=== PATIENT | female | born 1935 | race Caucasian/White ===

== ENCOUNTER 2016-08-18 06:12 | Inpatient (IN) | payer MEDICARE ==
[2016-08-07 12:59] LABS: BASOPHILS 0.4 %; BASOPHILS ABSOLUTE 0.03 10/3/uL (0.0-0.16); EOSINOPHILS 3.3 %; EOSINOPHILS ABSOLUTE 0.23 10/3/uL (0.0-0.53); HEMATOCRIT 42.9 % (36.0-48.0); HEMOGLOBIN 14.6 g/dL (12.0-16.0); IMMATURE GRANULOCYTES 0.7 %; IMMATURE GRANULOCYTES ABSOLUTE 0.05 10/3/uL (0.0-0.11); LYMPHOCYTES 27.5 %; LYMPHOCYTES ABSOLUTE 1.92 10/3/uL (0.67-4.30); MEAN CORPUSCULAR HEMOGLOB 31.3 pg (26.0-34.0); MEAN CORPUSCULAR VOLUME 91.9 fL (80-100); MEAN PLATELET VOLUME 10.8 fL (9.2-13.0); MONOCYTES 8.3 %; MONOCYTES ABSOLUTE 0.58 10/3/uL (0.21-1.20); NEUTROPHILS 59.8 %; NEUTROPHILS ABSOLUTE 4.17 10/3/uL (2.02-8.40); PLATELET COUNT 220 10/3/uL (150-400); RBC DISTRIBUTION WIDTH 13.6 % (12.0-16.0); RED CELL COUNT 4.67 10/6/uL (4.0-5.6)
[2016-08-07 13:00] LABS: MANUAL DIFF NO %
[2016-08-07 13:04] LABS: INTERNATIONAL NORMAL RATI 1.2 UNITS (-); PROTIME (NOT ORD) 15.3 SEC (12.0-14.5)
[2016-08-07 13:16] LABS: A/G RATIO 0.9 (0.7-1.9); ALBUMIN 3.7 G/DL (3.5-5.0); ALKALINE PHOSPHATASE 96 U/L (45-117); BUN (BLOOD UREA NITROGEN) 17 MG/DL (6-23); CHLORIDE, SERUM 102 MMOL/L (96-112); CO2 (CARBON DIOXIDE) 29 MMOL/L (24-34); CREATININE 0.83 MG/DL (0.55-1.02); GFR AFRICAN AMERICAN 76 ML/MIN (>=60); GFR NON AFRICAN AMERICAN 66 ML/MIN (>=60); GLOBULIN 3.9 G/DL (2.5-4.1); POTASSIUM, SERUM 3.9 MMOL/L (3.5-5.3); SGOT(AST) 19 U/L (5-40); SGPT(ALT) 18 U/L (5-65); SODIUM, SERUM 139 MMOL/L (135-148); TOTAL BILIRUBIN 0.6 MG/DL (0-1.2); TOTAL PROTEIN 7.6 G/DL (6.0-8.5)
[2016-08-07 13:17] LABS: GLUCOSE, SERUM 120 MG/DL (60-99)
[2016-08-07 13:17] LABS: B NATRIURETIC PEPTIDE (BNP) 273.6 PG/ML (< 100.0)
[2016-08-07 13:19] LABS: ASCORBIC ACID (UR NOT ORDER) NEG (NEG); BILIRUBIN, URINE NEGATIVE (NEG); KETONE, URINE NEGATIVE (NEG); LEUKOCYTE ESTERASE(NOT OR NEG (NEG); WBC (NOT ORDERED) (RFLEX) < 1 (0-5)
[2016-08-07 21:35] LABS: GLYCOHEMOGLOBIN (HbA1c) 5.9 % (4.7-6.1)
--- NOTE | ~2016-08-18 | OP ---
Record Of Operation [facility] [address] [facility] [place]. [address] NAME: ORLANDO JAY : 33 STATUS : ADM IN PAT#: [id number] AGE: 80 ADM/REG DATE : 08/18/16 MR#: [id number] REPORT SERV DATE: 08/19/16 DICTATED BY: GALA SHAH DATE: 08/18/16 REPORT STATUS : Draft TRANSCRIBED BY: MODSienna DATE: 08/18/16 DATE OF PROCEDURE: 08/18/2016 PREOPERATIVE DIAGNOSES: 1. Aortic valve stenosis with insufficiency. 2. Coronary artery disease. 3. Angina. 4. Chronic atrial fibrillation. 5. Chronic anticoagulant induced coagulopathy. 6. Hypertension. 7. Hypercholesterolemia. POSTOPERATIVE DIAGNOSES: 1. Aortic valve stenosis with insufficiency. 2. Coronary artery disease. 3. Angina. 4. Chronic atrial fibrillation. 5. Chronic anticoagulant induced coagulopathy. 6. Hypertension. 7. Hypercholesterolemia. PROCEDURES PERFORMED: 1. TAVR, right transfemoral, a 23 mm S3 Ivan pericardial valve. 2. Left transfemoral venous temporary pacemaker placement. 3. Perclose closure of the right femoral artery x2, left femoral artery x1. 4. Contrast aortography. 5. Right iliofemoral runoff aortography. 6. Transthoracic echocardiogram. SURGEONS: Include Dr. Shah, Dr. Gonzalez, Dr. Jensen, and Dr. Paz. MICROBIOLOGY LAB ASSISTANT: Dr. Noble Pena. PRIMARY SHRIMP PACKER: Dr. Francisco Jensen. INDICATIONS: This is an 80-year-old female, who has known aortic valve stenosis, who is experiencing increasing shortness of breath and dyspnea with minimal exertion, and angina type symptoms. She was seen by Dr. Gonzalez and referred for possible TAVR procedure. It was felt that the patient was in least intermediate risk after calculation of the STS database score, and given her age and weakness, it was felt that the TAVR procedure should be performed, and not surgical aortic valve replacement. She underwent a cardiac catheterization, which demonstrated lesion in the circumflex vessel which has not been addressed. We presented the patient at TAVR conference and discussed possible TAVR procedure with the patient and her family, and after lengthy discussion of operation, indications, and risks, they wished to proceed. STS predicted mortality was 6.3% for surgical aortic valve replacement with 28% morbidity mortality for said procedure. Record Of Operation [facility] [address] [place]. [address] NAME: ORLANDO JAY : 33 STATUS : ADM IN PAT#: [id number] AGE: 80 ADM/REG DATE : 08/18/16 MR#: [id number] REPORT SERV DATE: 08/19/16 DICTATED BY: GALA SHAH DATE: 08/18/16 REPORT STATUS : Draft TRANSCRIBED BY: MODSienna DATE: 08/18/16 Echocardiographically, her aortic valve area was 0.64 cm2 with a peak gradient of 33 mmHg. On catheterization, her aortic valve area was calculated 0.4 cm2 with a peak gradient of 40 mmHg, and mean gradient of 35 mmHg. There was moderate aortic insufficiency, and moderate mitral and tricuspid valve insufficiency. Carotid studies demonstrated right grade 1 disease on the right and minimal disease on the left. FINDINGS AT OPERATION: 1. Total time of rapid pacing was 21 seconds. 2. Time of deployment is 0925 hours. 3. Pre-deployment cardiac output of 3.2. Post deployment cardiac output of 3.5 L/minute. 4. Pre-deployment aortic valve area of 0.55. cm2. Post-deployment aortic valve area of 2.54 cm2. 5. Pre-implant aortic pressures: Systolic 122, diastolic 58, mean 82 mmHg. Post- deployment aortic pressures: Systolic 121, diastolic 62, and mean 80 mmHg. 6. Pre-implant AV gradient of 24 mean, peak of 20 mmHg. Post-implant aortic gradient mean of 4, peak of 4 mmHg. 7. Total contrast volume used was 70 mL. 8. Fluoro time was 16.4 minutes. 9. Estimated blood loss was less than 50 mL. 10.Total mGy used was 1086 mGy. 11.Aortic index was 41. 12.There was a small defect in the right femoral artery seen on iliofemoral runoff after Perclose closure of the right femoral arteriotomy site. This was less than 50% stenosis and was left in place. 13.There was no aortic insufficiency on transthoracic echocardiography. 14.Pedal pulses were present in bilateral lower extremities as were femoral artery at the end of the operation. PATHOLOGIC SPECIMENS: None. DESCRIPTION OF PROCEDURE: The patient was brought to the operating suite, where she was laid in the supine position in the hybrid operating table. Sedation with Diprivan and monitored anesthesia care was given. The patient's abdomen, groin, and legs were prepped with Hibiclens and ChloraPrep, and draped with Ioban sterile sheets. The groins were anesthetized with 1% lidocaine, and then microneedle access to the femoral arteries bilaterally and the femoral vein on the left side were obtained. Contrast angiography of the femoral artery access sites were obtained through microcatheter placed over the guidewire. Once these vessels were isolated, 6-[place] Citizen introducers were placed into each of the vessels. Then, a temporary transvenous pacemaker was advanced up the left femoral venous sheath under fluoroscopic guidance to come to rest in the right ventricle and pacing thresholds were confirmed. Next, a guidewire was advanced up the ascending aorta through the left femoral arterial sheath, and a pigtail catheter was placed in the noncoronary sinus, and right coronary sinus. Contrast aortography was used to confirm the angles for deployment of the valve. Record Of [facility] [address] [facility] [place]. [address] NAME: ORLANDO JAY : 31 STATUS : ADM IN [facility]#: [id number] AGE: 80 ADM/REG DATE : 08/18/16 MR#: [id number] REPORT SERV DATE: 08/19/16 DICTATED BY: GALA SHAH DATE: 08/18/16 REPORT STATUS : Draft TRANSCRIBED BY: ABIEL DATE: 08/18/16 Good visualization of the avani of the sinuses was seen at the valve deployment angle. Then, the guidewire was placed in the right femoral artery, and the introducer was removed. Then, two Perclose closure devices were placed and secured. Next, exchange catheter was advanced up into the ascending aorta, and Lunderquist wire was brought into the ascending aorta The valve introducer and sheath were brought up to the field, and these were placed into the descending thoracic aorta. Next, an AL1 catheter was placed in the ascending aorta, and the Lunderquist wire was removed. The valve was crossed with a soft wire using the AL1 catheter. This was exchanged for a Clarence catheter and simultaneous ventricular and aortic pressures were measured and recorded. Then, the extra-stiff wire was advanced into the [place] catheter, and the [place] catheter was removed. The valve delivery system was brought up to the field, and confirmation of the orientation of the valve was performed. The delivery system was then advanced up the right femoral sheath into the descending thoracic aorta. The dilation balloon was then backed onto the valve delivery system. This was then advanced around the arch of the aorta to lay across the aortic valve. We then moved to deployment angles and confirmation of the positioning of the valve was performed. Temporary rapid ventricular pacing ensued, and with pressures reduced, contrast aortography was performed to confirm suitable positioning of the valve. The delivery system had been backed out into the ascending aorta. The valve was then deployed using the balloon. Temporary pacing was suspended. Backup pacing was performed for several seconds. The delivery system was then backed up into the ascending aorta, and contrast aortography demonstrated no evidence of insufficiency. Transthoracic echocardiography was then performed by Dr. Pena demonstrating good ventricular function and no aortic insufficiency. The valve delivery system was then backed out of the sheath. The sheath was removed from the right femoral artery and the Perclose device was deployed. Then, the pigtail catheter in the ascending aorta was back down to the aortic bifurcation. Contrast angiography of the right iliofemoral system was performed demonstrating small defect in the right femoral artery with the Perclose devices were deployed. This was estimated to be less than 50%, and palpable pulses were present in the feet. At this point, we were satisfied we still had adequate flow in the right leg. There was good hemostasis of the right femoral arteriotomy site. Next, an exchange wire was advanced up the pigtail catheter which was then withdrawn from the left femoral artery along with a 6-[place] Citizen introducer. A single Perclose device was then placed in the left femoral arteriotomy site. Good hemostasis was noted on the left leg. Record Of Operation [facility] [id number] [place]. [address] NAME: ORLANDO JAY : 33 STATUS : ADM IN PAT#: [id number] AGE: 80 ADM/REG DATE : 08/18/16 MR#: [id number] REPORT SERV DATE: 08/19/16 DICTATED BY: GALA SHAH DATE: 08/18/16 REPORT STATUS : Draft TRANSCRIBED BY: MODSienna DATE: 08/18/16 The temporary venous pacer was withdrawn as was the [place]-Erin catheter. The femoral sheath in the IJ and the left femoral vein were left in place. The patient tolerated the procedure well. There were no complications. DISPOSITION: The patient was taken to the Intensive Care Unit in stable condition. Pedal pulses were noted bilaterally. ANDREI/ABIEL Gala Shah M.D. / [id number] CC: Dale Bey M.D. William Oellerich, M.D., Ph.D, F.A.C.C.
--- NOTE | ~2016-08-18 | OP ---
Record Of Operation [facility] [address] [place]. [address] NAME: ORLANDO JOHNSON : 31 STATUS : ADM IN PAT#: [id number] AGE: 80 ADM/REG DATE : 08/18/16 MR#: [id number] REPORT SERV DATE: 08/18/16 DICTATED BY: JYOTSNA JENSEN DATE: 08/18/16 REPORT STATUS : Draft TRANSCRIBED BY: ABIEL DATE: 08/18/16 DATE OF PROCEDURE: TAVR NOTE PROCEDURE: Right transfemoral transcatheter aortic valve replacement using 23 mm Romero S3 valve. INDICATIONS FOR THE PROCEDURE: Ms Orlando Johnson is an 80-year-old woman with severe aortic stenosis. Her history is remarkable for chronic atrial fibrillation, hypertension, peptic ulcer disease, and hyperlipidemia. Her echocardiogram demonstrated an ejection fraction of 50%, severe low gradient aortic stenosis, peak gradient of 33, aortic valve area of 0.6, mean gradient of 21. Cardiac catheterization demonstrated 75% stenosis after the first marginal circumflex, was 75 in the OM2 as well, no other obstructive disease. The valve area by catheterization was 0.4, the mean gradient was 35, and a peak gradient of 40. Her predicted mortality by the STS score was 6.3%, predicted morbidity mortality is 27.8%, her EuroSCORE predicted mortality of 4.3%. Both Dr. Shah and Dr. Gonzalez, felt she was at high risk for surgical aortic valve replacement. She came to [facility], the entire team felt she was a better candidate for transcatheter aortic valve replacement. POSTOPERATIVE DIAGNOSES: Successful deployment of the Romero S3 valve, transcatheter aortic valve replacement, using the right transfemoral approach. OPERATIVE DOCTORS: 1. Dr. Jensen. 2. Dr. Gonzalez. 3. Dr. Shah. 4. Dr. Paz. OPERATIVE TECHNIQUE: The patient was prepped and draped in the usual sterile fashion. She received propofol anesthesia, she was not intubated. She did not have a Singh catheter. She did have a radial A-line and a right heart catheter. The right left groins were anesthetized with lidocaine 1%, 12 mL. Access of both left and right femoral artery was easily obtained using a micropuncture technique, angiogram confirmed access in the common femoral artery. A 6-[place] sheath was placed in the left femoral artery, the left femoral vein, and the right femoral artery. The pacemaker was positioned in the right ventricular apex. Excellent threshold. A pigtail catheter was positioned in the ascending aorta to a system valve positioning. Two ProGlide sutures were placed in the right femoral artery at the 10 o'clock and 2 o'clock Record Of Operation [facility] [address] [place]. [address] NAME: ORLANDO JOHNSON : 33 STATUS : ADM IN PAT#: [id number] AGE: 80 ADM/REG DATE : 08/18/16 MR#: [id number] REPORT SERV DATE: 08/18/16 DICTATED BY: JYOTSNA JENSEN DATE: 08/18/16 REPORT STATUS : Draft TRANSCRIBED BY: ABIEL DATE: 08/18/16 positions. Heparin was given IV. The activating clotting time was therapeutic. The 6-[place]ib[place] sheath was replaced into the right femoral artery. The J-wire was placed in the ascending aorta, the multipurpose catheter was positioned, the J-wire was exchanged out for a Lunderquist wire. We then placed the Romero sheath without difficulty. We crossed the aortic valve without difficulty using AL1 and a straight wire. We then measured simultaneous pressures in the ascending aorta in the left ventricle using a Clarence double-lumen pigtail catheter. At that time, we positioned the preshaped Amplatz extra-stiff wire in the left ventricular apex. We then delivered the valve. The valve was positioned onto the balloon in the abdominal aorta. We crossed the valve without difficulty. With rapid ventricular pacing, the valve was deployed. After deployment without the wire, the thoracic aortogram demonstrated no aortic insufficiency. The chest wall echo demonstrated no aortic insufficiency. The AI index was 41. We then removed the Romero sheath. The abdominal aortogram demonstrated no extravasation with excellent flow. She had a good dorsalis pedis pulses and good femoral pulse. The left femoral artery sheath was also removed. The site was closed with ProGlide device. The pacemaker was removed. The right heart catheter was removed. The venous sheath in the left femoral vein was left into place. The total rapid pacing time was 21 seconds. The actual time of valve deployment was 0925 hours. The cardiac output pre-deployment was 3.2 L/minute, post-deployment of the cardiac output was 3.5 L/minute. The valve area pre-deployment was 0.5 cm2, post deployment of the valve area was 2.55 cm2. The blood pressure pre-deployment was 122/58, mean of 82, and heart rate of 85. Post-deployment, the blood pressure was 121/62, mean of 80, and heart rate of 86. The gradient pre-deployment was 24 mmHg mean, 20 mmHg peak, post-deployment the both the peak and mean gradient was 4 mmHg. The total contrast volume used was 70 mL. Total fluoro time of 16.4 minute. The blood loss was less than 50 mL. The radiation dose was off 1086 mGy. The AI index was 41. There was no AI by echo or by thoracic aortogram. In short, the patient underwent a successful transcatheter aortic valve deployment via the right femoral artery using an Romero S3 valve, the valve area increased from 0.5 to 2.5. There was no AI by echo or by thoracic aortogram. She received propofol anesthesia. She was not intubated. Both the right heart catheter and the pigtail pacemaker were removed at the completion of the procedure. She will be treated with aspirin, clopidogrel, and her Eliquis will be restarted. Record Of Operation [facility] [id number] [place]. [address] NAME: ORLANDO JOHNSON : 33 STATUS : ADM IN [facility]#: [id number] AGE: 80 ADM/REG DATE : 08/18/16 MR#: [id number] REPORT SERV DATE: 08/18/16 DICTATED BY: JYOTSNA JENSEN DATE: 08/18/16 REPORT STATUS : Draft TRANSCRIBED BY: ABIEL DATE: 08/18/16 JENNIFER/ABIEL Jyotsna Jensen M.D. / [id number] CC: Mickey Shah M.D.
[~2016-08-18 06:12] MED LIST: ALEVE220 MG PO; ALFAFA; BL CHROMIUM200 MCG OR; BL CHROMIUM200 MCG PO; ELIQUIS 5 MG TAB5 MG PO; ENABLEX7.5 PO; HYDROCHLOROT12.5 MG PO; JANTOVEN5 MG PO; LIQUID TEARS OPH; METPAKSF PO; NORV5 PO; OTC ROLAIDS PO; PROTONIX PO; SURBEX-T1 TAB PO; TOPXL25 PO; TOPXL50 PO; VITAMIN D31000 UNIT PO; [UNRECOGNIZED DRUG - OTHER] PO; [UNRECOGNIZED DRUG - OTHER] PO
[2016-08-18 10:19] LABS: HEMATOCRIT 38.8 % (36.0-48.0); HEMOGLOBIN 13.3 g/dL (12.0-16.0); PLATELET COUNT 172 10/3/uL (150-400)
[2016-08-18 10:30] LABS: INTERNATIONAL NORMAL RATI 1.3 UNITS (-); PROTIME (NOT ORD) 16.3 SEC (12.0-14.5)
[2016-08-18 10:32] LABS: BUN (BLOOD UREA NITROGEN) 15 MG/DL (6-23); CALCIUM, SERUM 8.7 MG/DL (8.5-10.4); CHLORIDE, SERUM 111 MMOL/L (96-112); CO2 (CARBON DIOXIDE) 25 MMOL/L (24-34); GFR AFRICAN AMERICAN 80 ML/MIN (>=60); GFR NON AFRICAN AMERICAN 69 ML/MIN (>=60); GLUCOSE, SERUM 134 MG/DL (60-99); POTASSIUM, SERUM 4.2 MMOL/L (3.5-5.3); SODIUM, SERUM 142 MMOL/L (135-148)
[2016-08-18 10:43] LABS: PARTIAL THROMBO TIME > 150.0 SEC (22.5-37.2)
[2016-08-18 18:33] LABS: HEMATOCRIT 38.2 % (36.0-48.0)
[2016-08-18 18:46] LABS: BUN (BLOOD UREA NITROGEN) 14 MG/DL (6-23); CALCIUM, SERUM 8.6 MG/DL (8.5-10.4); CHLORIDE, SERUM 111 MMOL/L (96-112); CO2 (CARBON DIOXIDE) 24 MMOL/L (24-34); CREATININE 0.72 MG/DL (0.55-1.02); GFR AFRICAN AMERICAN 90 ML/MIN (>=60); GFR NON AFRICAN AMERICAN 78 ML/MIN (>=60); GLUCOSE, SERUM 94 MG/DL (60-99); POTASSIUM, SERUM 3.9 MMOL/L (3.5-5.3); SODIUM, SERUM 145 MMOL/L (135-148)
[2016-08-19 03:51] LABS: BASOPHILS 0.1 %; BASOPHILS ABSOLUTE 0.01 10/3/uL (0.0-0.16); EOSINOPHILS 0.1 %; EOSINOPHILS ABSOLUTE 0.01 10/3/uL (0.0-0.53); HEMATOCRIT 39.8 % (36.0-48.0); HEMOGLOBIN 13.4 g/dL (12.0-16.0); IMMATURE GRANULOCYTES 0.5 %; IMMATURE GRANULOCYTES ABSOLUTE 0.09 10/3/uL (0.0-0.11); LYMPHOCYTES 11.7 %; LYMPHOCYTES ABSOLUTE 1.93 10/3/uL (0.67-4.30); MEAN CORPUS HGB CONC 33.7 g/dL (32.0-36.0); MEAN CORPUSCULAR HEMOGLOB 31.1 pg (26.0-34.0); MEAN CORPUSCULAR VOLUME 92.3 fL (80-100); MEAN PLATELET VOLUME 10.5 fL (9.2-13.0); MONOCYTES ABSOLUTE 1.49 10/3/uL (0.21-1.20); NEUTROPHILS 78.6 %; NEUTROPHILS ABSOLUTE 12.94 10/3/uL (2.02-8.40); PLATELET COUNT 179 10/3/uL (150-400); RBC DISTRIBUTION WIDTH 13.5 % (12.0-16.0); RED CELL COUNT 4.31 10/6/uL (4.0-5.6)
[2016-08-19 04:02] LABS: BUN (BLOOD UREA NITROGEN) 16 MG/DL (6-23); CALCIUM, SERUM 8.9 MG/DL (8.5-10.4); CHLORIDE, SERUM 111 MMOL/L (96-112); CO2 (CARBON DIOXIDE) 27 MMOL/L (24-34); CREATININE 0.92 MG/DL (0.55-1.02); GFR AFRICAN AMERICAN 67 ML/MIN (>=60); GFR NON AFRICAN AMERICAN 58 ML/MIN (>=60); GLUCOSE, SERUM 96 MG/DL (60-99); SODIUM, SERUM 143 MMOL/L (135-148)
[2016-08-19 04:07] LABS: MANUAL DIFF NO %; WHITE BLOOD CELLS 16.5 10/3/uL (4.5-10.5)
[2016-08-19] MEDS ORDERED: HALF81 PO (09:58)
[2016-08-19] MEDS ORDERED: APRES25 PO (10:00)
[2016-08-19] MEDS ORDERED: LOP25 PO (10:01)
== END 2016-08-19 14:00 | disposition home or self-care (01) | DRG 266 ==
LOC: SDC/OF 06:12 → CVICU 09:53
PROVIDERS: Thoracic Surgery (Cardiothoracic Vascular Surgery)
PROC: 02RF38Z Replacement of Aortic Valve with Zooplastic Tissue, Percutaneous Approach (ICD-10-PCS; principal; 2016-08-18 07:30)
PROC: B246YZZ Ultrasonography of Right and Left Heart using Other Contrast (ICD-10-PCS; 2016-08-18 07:30)
DX: I35.0 Nonrheumatic aortic (valve) stenosis (principal); I50.33 Acute on chronic diastolic (congestive) heart failure; I25.110 Atherosclerotic heart disease of native coronary artery with unstable angina pectoris; I48.2 Chronic atrial fibrillation; K27.9 Peptic ulcer, site unspecified, unspecified as acute or chronic, without hemorrhage or perforation; I10 Essential (primary) hypertension; E78.00 Pure hypercholesterolemia, unspecified; Z00.6 Encounter for examination for normal comparison and control in clinical research program; Z79.899 Other long term (current) drug therapy
CPT/HCPCS: 36415; 71010; 71020; 80048; 80053; 81001; 82330; 82803; 82947; 82962; 83036; 83735; 83880; 84132; 84295; 85014; 85018; 85025; 85049; 85347; 85610; 85730; 86850; 86900; 86901; 87641; 93005; 93306; 93312; 93320; 93325; A9270-GY; C1751; C1769; C1894; J0690; J2370; J3370; J3475; J3480